=== PATIENT | male | born 1965 | race Caucasian/White ===

== ENCOUNTER 2018-02-12 13:48 | Emergency (ER) | payer MEDICAID ==
[2018-02-12] MEDS: HYDROCODONE/APAP (10/325) TAB PO (14:39)
== END 2018-02-12 16:20 | disposition home or self-care (01) ==
LOC: FTE 13:48
DX: S39.92XA Unspecified injury of lower back, initial encounter (principal); X58.XXXA Exposure to other specified factors, initial encounter; Y92.9 Unspecified place or not applicable
CPT/HCPCS: 72131; 99284-25